=== PATIENT | male | born 1975 | race Caucasian/White ===

== ENCOUNTER 2020-08-07 18:26 | Observation (INO) ==
[2020-08-07 19:48] LABS: ABS Eosinophils 0.2 10^3/ul (0-0.6); ABS Monocytes 0.9 10^3/ul (0-0.8); ABS Neutrophils 5.6 10^3/ul (1.5-7.7); Eosinophil % 2.3 %; Hematocrit 46 % (42-52); Hemoglobin 15.8 g/dL (14.0-18.0); Lymphocyte % 23.1 %; Mean Corpuscular HGB Conc 35 g/dL (31-36); Mean Corpuscular Hemoglobin 29 pg (27-31); Mean Corpuscular Volume 84 fL (80-94); Mean Platelet Volume 6.6 fL (7.4-10.4); Platelet Count 309 10^3/uL (150-450); Red Blood Count 5.47 10^6 /uL (4.18-5.48); Red Cell Distribution Width 13 % (10-15); White Blood Count 8.8 10^3/uL (3.5-10.8)
[2020-08-07 20:04] LABS: INR 1.2 (0.82-1.09)
[2020-08-07] MEDS ORDERED: Piperacillin/Tazobac ADVAN 3.375 GM in NS 0.9% 100 ml BAG 100 ML IV ONE (20:09)
[2020-08-07 20:27] LABS: Albumin 4.5 g/dL (3.2-5.2); Albumin/Globulin Ratio 1.4 (1-3); BUN/Creatinine Ratio 12.2 (8-20); Calcium 9.4 mg/dL (8.6-10.3); EGFR African American 82.8 (>60); EGFR Non-African American 68.5 (>60); Globulin 3.2 g/dL (2-4); Potassium 4.1 mmol/L (3.5-5.0); Total Bilirubin 0.7 mg/dL (0.2-1.0); Total Protein 7.7 g/dL (6.4-8.9)
[2020-08-07] MEDS: NS 0.9% 1000 ml BAG 1,000 ML IV SCH (20:45)
[2020-08-07] MEDS ORDERED: Zosyn per Pharmacy NOTE FOLLOW UP SCH (21:00)
[2020-08-07 21:32] LABS: C Reactive Protein 12.37 mg/L (<8.01)
[2020-08-08] MEDS: ZOSYN 3.375 GM Q8H per EXTENDED INFUSION IV SCH ×2 (02:22→10:29)
[2020-08-08] MEDS: Ondansetron 4 mg VIAL 2 MG/ML 2 ml VIAL IV PRN ×2 (02:33→08:31)
[2020-08-08] MEDS: NS 0.9% 1000 ml BAG 1,000 ML IV SCH (08:21)
[2020-08-08] MEDS ORDERED: Pantoprazole VIAL 40 MG VIAL IV SCH (09:00)
[2020-08-08 15:51] VITALS: BP 150/86
[2020-08-08] MEDS ORDERED: PEG 3000 GI LAVAGE 1 GALLON PO ONE (17:00)
== END 2020-08-08 19:30 | disposition home or self-care (01) ==
LOC: INTOOBSV 18:52 → SSU 18:52
PROVIDERS: ADMIT Hospitalist; ATTEND Internal Medicine